=== PATIENT | female | born 1970 | race Caucasian/White ===

== ENCOUNTER → 2019-06-20 14:54 | Outpatient (CLI) | payer OTHER, SELFPAY ==
--- NOTE | ~2019-06-20 | MR_ITS ---
EXAMINATION: MR ankle RT wo con, MR foot RT wo con DATE: 06/20/2019 16:57 INDICATION: One year of right forefoot and ankle pain TECHNIQUE: 1. Magnetic resonance imaging (MRI) of the right ankle and hindfoot was performed without intravenous contrast. Sequences included sagittal, coronal, and axial proton-density weighted fast spin echo wit hout and with fat saturation. 2. MRI of the right fore and midfoot was performed without intravenous contrast. Sequences included s agittal and coronal T1-weighted FSE, sagittal fluid sensitive FSE STIR, axial and coronal PD-weighted FS FSE and axial PD-weighted FSE. COMPARISON: Right foot radiographs dated 04/21/2017 FINDINGS: Medial ankle ligaments: Deep and superficial deltoid ligaments as well as the spring ligament are normal. Lateral ankle ligaments: The anterior and posterior inferior tibiofibular ligaments are normal. The anterior talofibular, calc aneofibular and posterior talofibular ligaments are normal. Fore and midfoot ligaments: Lisfranc ligament is normal. There is a pseudoneuroma sign with asymmetric inflammatory stranding wit h medial sided predominance at the second-third intermetatarsal space. There is asymmetric thickening of the lateral side of the intermetatarsal intraosseous tendon-collateral ligament complex at the le susan of the head of the second metatarsal. Finally there is thinning of the distal plantar plate. Each of these findings is consistent with a plantar plate tear although no discrete fluid signal intensit y tear defect is appreciated. The remaining collateral ligament complexes at the metatarsophalangeal and interphalangeal joints are normal. Tendons: Achilles tendon is normal. The peroneus longus and brevis tendons are normal. The tibialis anterior a nd extensor hallucis longus and extensor digitorum longus tendons are normal. The tibialis posterior, flexor digitorum longus and flexor hallucis longus tendons are normal. Plantar fascia: There is mild thickening and mild increased signal of the proximal plantar aponeurosis with small katy ntar calcaneal spur at its calcaneal insertion consistent with mild chronic plantar enthesopathy. The re is minimal edema surrounding the proximal plantar aponeurosis consistent with negligible acute fas ciitis. Bones/other: Bone alignment is normal. Normal marrow signal throughout. No fracture or pathologic marrow replacing process. Mild osteoarthritis at the first metatarsophalangeal joint. Remaining joint spaces appear r elatively preserved. Fluid: Physiologic amount fluid in the joint spaces. No tenosynovitis, bursitis or other abnormal fluid silvia ections. IMPRESSION: 1. Moderate chronic plantar enthesopathy with negligible acute plantar fasciitis. 2. Constellation of secondary findings consistent with tear of the plantar plate complex head of the second metatarsal. 3. Mild osteoarthritis at the first metatarsophalangeal joint. Reviewed, dictated and finalized at location A. IMPRESSION: 1. Moderate chronic plantar enthesopathy with negligible acute plantar fasciiti s. 2. Constellation of secondary findings consistent with tear of the plantar plat e complex head of the second metatarsal. 3. Mild osteoarthritis at the first metatarsophalangeal joint.
== END ==
PROVIDERS: PCP Family Medicine; Visit Provider Podiatrist Foot & Ankle Surgery
DX: M79.671 Pain in right foot (principal); M25.571 Pain in right ankle and joints of right foot; M72.2 Plantar fascial fibromatosis; M19.071 Primary osteoarthritis, right ankle and foot
CPT/HCPCS: 73718; 73721

== ENCOUNTER 2020-01-24 16:38 | Outpatient (CLI) | payer OTHER, SELFPAY ==
--- NOTE | ~2020-01-24 | XR_ITS ---
EXAMINATION: XR hip RT min 2V EXAM DATE: 01/24/2020 17:05 INDICATION: Right hip pain. TECHNIQUE: Right hip frontal, crosstable lateral and 'frog-leg' projections for interpretation. Chandrakant evanon is made to prior examination from 11/18/2010. FINDINGS: Smooth right hip femoral head contour, no radiographic evidence of avascular necrosis. Th e right hip joint space is normal and without bony productive change. There are no acute fractures or dislocations identified. There is no subcutaneous gas. The soft tissue is unremarkable. Lumbar f usion. IUD. IMPRESSION: 1. Unremarkable right hip exam. Reviewed, dictated and finalized at location A.
--- NOTE | ~2020-01-24 | XR_ITS ---
EXAMINATION: XR lumbar spine 2-3V EXAM DATE: 01/24/2020 17:05 INDICATION: Low back pain, right-sided hip pain. TECHNIQUE: Lumber spine frontal, lateral, lateral L5-S1 projections for interpretation. Correlation i s made to CT lumbar spine 06/17/2014. FINDINGS: Again there is posterior and interbody fusion L4-S1, hardware appears intact. L5 laminecto mies. Probably L4 laminotomies. There are cholecystectomy clips. There is mild disc disease L2-3 and L3-4. The vertebral bodies are aligned in the AP dimension. The vertebral body heights are maintained . No endplate erosive change. Sacrum, sacroiliac joints, sacral arcuate lines are intact. There is IU D projecting over the central aspect of the pelvis. There are cholecystectomy clips. IMPRESSION: 1. Intact L4-S1 fusion. 2. Mild lumbar spondylosis. Reviewed, dictated and finalized at location A.
== END 2020-01-24 16:39 | disposition home or self-care (01) ==
PROVIDERS: PCP Family Medicine; Visit Provider Nurse Practitioner Family
DX: M25.551 Pain in right hip (principal); G89.29 Other chronic pain; M54.5 Low back pain; Z98.1 Arthrodesis status; M47.816 Spondylosis without myelopathy or radiculopathy, lumbar region
CPT/HCPCS: 72100; 73502

== ENCOUNTER → 2020-02-13 07:41 | Outpatient (CLI) | payer OTHER, SELFPAY ==
--- NOTE | ~2020-02-13 | MR_ITS ---
EXAMINATION: MR cervical spine wo con EXAM DATE: 02/13/2020 08:54 INDICATION: M54.12 - Radiculopathy, cervical region radiculopathy. TECHNIQUE: Multi-sequential, multiplanar MR images of the cervical spine were obtained without contra st. Axial T2, axial T2 MERGE sequence. Sagittal T1, T2, T2 fat saturation images also obtained. Th ere is no prior study for comparison. FINDINGS: The vertebral bodies are aligned in the AP dimension. Vertebral body and disc heights are well-maintained. The spinal cord signal intensity and intrinsic morphology is normal. Cervicomedullar y junction is normal in appearance. There are no suspicious marrow signal abnormalities. Paraspinal s oft tissue is unremarkable. Level by level evaluation: C2-C3: Disc does not extend beyond the endplate margin. Uncovertebral joint arthropathy: None. Facet joint arthropathy: Mild. Neural foraminal stenosis: No stenosis. Central canal stenosis: No stenosis. C3-C4: There is a minimal diffuse disc bulge. Uncovertebral joint arthropathy: Mild left. Facet joint arthropathy: Mild to moderate. Neural foraminal stenosis: Mild left. Central canal stenosis: No stenosis. C4-C5: Disc does not extend beyond the endplate margin. Uncovertebral joint arthropathy: Mild bilateral. Facet joint arthropathy: Mild to moderate bilateral. Neural foraminal stenosis: No stenosis. Central canal stenosis: No stenosis. C5-C6: Disc does not extend beyond the endplate margin. Uncovertebral joint arthropathy: Mild bilateral. Facet joint arthropathy: Mild to moderate bilateral. Neural foraminal stenosis: No stenosis. Central canal stenosis: No stenosis. C6-C7: Disc does not extend beyond the endplate margin. Uncovertebral joint arthropathy: Mild to moderate left, mild right. Facet joint arthropathy: Mild bilateral. Neural foraminal stenosis: Mild left. Central canal stenosis: No stenosis. C7-T1: Disc does not extend beyond the endplate margin. Uncovertebral joint arthropathy: None. Facet joint arthropathy: Mild to moderate right, mild left. Neural foraminal stenosis: Mild right. Central canal stenosis: No stenosis. IMPRESSION: 1. Mild cervical spondylosis. Reviewed, dictated and finalized at location A. O PLANT OPERATOR
--- NOTE | ~2020-02-13 | MR_ITS ---
EXAMINATION: MR thoracic spine wo con EXAM DATE: 02/13/2020 08:55 INDICATION: M47.814 - Spondylosis without myelopathy or radiculopathy, thoracic region radiculopathy. TECHNIQUE: Multi-sequential, multiplanar MR images of the thoracic spine were obtained without contra st. Sagittal T1, T2, T2 fat saturation, axial T2 weighted images reviewed. Correlation is made to CT thoracic spine 06/27/2014. FINDINGS: The spinal cord signal intensity and intrinsic morphology is normal. Central canal and neur al foramen are widely patent. There is mild thoracic disc disease and mild diffuse facet arthropathy. There are no suspicious marrow signal abnormalities. Paraspinal soft tissue is unremarkable. Incide ntal left thyroid lobe nodule in the inferior pole measuring about 2 cm. IMPRESSION: 1. Mild thoracic spondylosis. No stenosis. 2. Left thyroid lobe nodule; consider ultrasound for risk stratification. Reviewed, dictated and finalized at location A. D CARE SPECIALIST
--- NOTE | ~2020-02-13 | MR_ITS ---
EXAMINATION: MR lumbar spine wo con EXAM DATE: 02/13/2020 09:06 INDICATION: Low back pain M54.5 - Low back pain . TECHNIQUE: Multi-sequential, multiplanar MR images of the lumbar spine were obtained without contrast . Sagittal T1, T2, T2 fat saturation images. Axial T2 weighted images. Comparison is made to prior examination from 10/21/2018. FINDINGS: L5 laminectomies. Posterior and interbody fusion L4-S1. The vertebral bodies are aligned in the AP dimension. Mild disc disease L2-3 and L3-4. The conus medullaris terminates at the L2 level a nd has normal signal intensity and morphology. Paraspinal soft tissue is unremarkable. Level by level evaluation: T12-L1: Disc does not extend beyond the endplate margin. Facet arthropathy: None. Neural foraminal stenosis: No stenosis. Central canal stenosis: No stenosis. L1-L2: Disc does not extend beyond the endplate margin. Facet arthropathy: Mild bilateral. Neural foraminal stenosis: No stenosis. Central canal stenosis: No stenosis. L2-L3: There is a mild diffuse disc bulge. Facet arthropathy: Mild. Neural foraminal stenosis: No stenosis. Central canal stenosis: No stenosis. L3-L4: There is a mild diffuse disc bulge. Facet arthropathy: Mild to moderate. Neural foraminal stenosis: Mild bilateral. Central canal stenosis: No stenosis. L4-L5: This level is fused. Facet arthropathy: Poorly visualized. Neural foraminal stenosis: No stenosis. Central canal stenosis: No stenosis. L5-S1: This level is fused. Facet arthropathy: Poorly visualized. Neural foraminal stenosis: No stenosis. Central canal stenosis: No stenosis. IMPRESSION: 1. L4-S1 fusion, posterior decompression. 2. Mild lumbar spondylosis. Reviewed, dictated and finalized at location A. HAND
== END ==
PROVIDERS: PCP Family Medicine; Referring Provider Nurse Practitioner Family; Visit Provider Physician Assistant Medical
DX: M47.14 Other spondylosis with myelopathy, thoracic region (principal); E04.1 Nontoxic single thyroid nodule; M47.26 Other spondylosis with radiculopathy, lumbar region; Z98.1 Arthrodesis status; M48.03 Spinal stenosis, cervicothoracic region; M48.061 Spinal stenosis, lumbar region without neurogenic claudication
CPT/HCPCS: 72141; 72146; 72148

== ENCOUNTER → 2020-02-27 15:41 | Outpatient (CLI) | payer OTHER, SELFPAY ==
--- NOTE | ~2020-02-27 | US_ITS ---
EXAMINATION: US thyroid DATE: 02/27/2020 15:57 INDICATION: Nontoxic single thyroid nodule. TECHNIQUE: Multiple ultrasound images of the thyroid were obtained. COMPARISON: None. FINDINGS: The right thyroid lobe measures 6.3 x 1.9 x 1.6 cm. The left thyroid lobe measures 5.3 x 1.7 x 1.7 c m. In the right thyroid lobe, there is a 10 mm mixed cystic and solid, isoechoic, gmovf-arlo-vpyt no dule with ill-defined margin without echogenic foci (TI-RADS TR2). In the right thyroid lobe, there i s a 7 mm solid, hypoechoic, ndase-hexi-neun nodule with lobulated margin without echogenic foci (TR4) . In the left thyroid lobe, there is a 1.3 cm solid, hypoechoic, rjyzk-gzlk-xsvc nodule with lobulate d margin without echogenic foci (TR4). IMPRESSION: 1. Thyroid nodules. Thyroid ultrasound is recommended in one year. Reviewed, dictated and finalized at location A. PING MACHINE OPERATOR FOR METAL
== END ==
PROVIDERS: PCP Family Medicine; Visit Provider Physician Assistant Medical
DX: E04.2 Nontoxic multinodular goiter (principal)
CPT/HCPCS: 76536

== ENCOUNTER 2020-03-28 10:36 | Emergency (ER) | payer OTHER, SELFPAY ==
[2020-03-28 10:44] VITALS: BP 128/80; PULSE 69; RESP 16; TEMP 36.7; O2SAT 99
--- NOTE | 2020-03-28 10:55 | ED.FEMALEGU ---
HPI - Female Genitourinary General Chief complaint: Urogenital-Female Stated complaint: possible uti Time Seen by Provider: 03/28/20 10:55 Source: patient and RN notes reviewed Mode of arrival: ambulatory Limitations: no limitations History of Present Illness HPI Narrative: 49-year-old female presents concern for urinary tract infection. Reports symptoms of hematuria, frequency, urgency, bladder pain started last night. Reports she finished a course of Macrobid for urinary tract infection that started on 03/18, reports symptoms improved within 1 to 2 days of that antibiotic. Denies a history of frequent UTIs. Denies fever, abdominal pain, nausea, vomiting, back pain. MD elicited complaint: UTI Related Data Home Medications Medication Instructions Recorded Confirmed duloxetine [Cymbalta] 30 mg PO HS 03/28/20 03/28/20 estradiol 0.5 mg PO DAILY 03/28/20 03/28/20 levonorgestrel [Mirena] 1 device INTRAUTERINE ONCE 03/28/20 03/28/20 naproxen [Naprosyn] 500 mg PO BID 03/28/20 03/28/20 Allergies Allergy/AdvReac Type Severity Reaction Status Date / Time oxycodone Allergy Unknown Itching Verified 03/28/20 10:51 Review of Systems Review of Systems: Narrative: CONSTITUTIONAL: Denies malaise, chills, sweats, or fever. CARDIOVASCULAR: Denies chest pain, palpitations, or edema. RESPIRATORY: Denies cough or dyspnea. GASTROINTESTINAL: Denies abdominal pain, nausea, vomiting, diarrhea GENITOURINARY: Denies dysuria. Reports frequency, urgency, hematuria. SKIN: Denies rash or itching. MUSCULOSKELETAL: Denies back pain or myalgia. All systems reviewed & are unremarkable except as noted in HPI and below PMFSH Past Medical History Medical History Anxiety BMI 27.0-27.9,adult BMI 28.0-28.9,adult GERD (gastroesophageal reflux disease) Hyperlipidemia Migraine RLS (restless legs syndrome) Surgical History Surgical History H/O Spinal surgery hardware History of cholecystectomy Family History Family History Grandparent Cerebrovascular accident Family history of heart disease in male family member before age 55 Other Diabetes mellitus Social History Social History Smoking status: Never smoker Alcohol intake: current Comments At time of signature, agree with nursing past medical, surgical, social and family history. There is no relevant family history pertinent to the presenting complaint Exam Narrative: Exam Narrative: GENERAL: Well-appearing, well-nourished, and in no acute distress. HEAD: Normocephalic. EYES: PERRLA, conjunctivae clear. NECK: Supple. No lymphadenopathy CHEST: Clear to auscultation. No respiratory distress. HEART: Regular rate and rhythm. ABDOMEN: Soft, nontender upon palpation, nondistended, normal active bowel sounds, no palpable or pulsatile masses, no guarding. No CVA tenderness SKIN: Warm, dry, no rash. NEURO: Alert and oriented x3. PSYCH: Normal mood and affect Course Course Emergency Course: Patient is aware of diagnosis, understands and agrees to treatment plan. Anticipatory guidance given. Patient agrees to follow-up as directed and is aware of reasons to seek care at the emergency department. Portions of this record may have been created with voice recognition software Vital Signs Vital signs: Vital Signs Temperature 98.1 F 03/28/20 10:44 Pulse Rate 69 03/28/20 10:44 Respiratory Rate 16 03/28/20 10:44 Blood Pressure 128/80 03/28/20 10:44 Pulse Oximetry 99 03/28/20 10:44 Temperature 98.1 F 03/28/20 10:44 Pulse Rate 69 03/28/20 10:44 Respiratory Rate 16 03/28/20 10:44 Blood Pressure 128/80 03/28/20 10:44 Pulse Oximetry 99 03/28/20 10:44 Reviewed. MDM - Female Genitourinary MDM Narrative Medical decision raymond
== END 2020-03-28 11:30 | disposition home or self-care (01) ==
PROVIDERS: Emergency Provider Nurse Practitioner; PCP Family Medicine
DX: R35.0 Frequency of micturition (principal); R31.9 Hematuria, unspecified; R39.15 Urgency of urination; E78.5 Hyperlipidemia, unspecified; G25.81 Restless legs syndrome; K21.9 Gastro-esophageal reflux disease without esophagitis; F41.9 Anxiety disorder, unspecified
CPT/HCPCS: 81003; 87077; 87086; 87088; 87186; 99213; G0463

== ENCOUNTER 2020-04-21 08:05 | Emergency (ER) | payer OTHER, SELFPAY ==
--- NOTE | 2020-04-21 08:15 | ED.FEMALEGU ---
HPI - Female Genitourinary General Chief complaint: Urogenital-Female Stated complaint: possible uti Time Seen by Provider: 04/21/20 08:15 Source: patient and RN notes reviewed Mode of arrival: ambulatory Limitations: no limitations History of Present Illness HPI Narrative: 49-year-old female presents to [facility] with complaints of I have a UTI . Seen 03/18 and 03/28 for the same. On 03/28 put on Augmentin and culture sent. Patient states that she was started on estrogen early March and within 2 weeks her symptoms started. States she also had a bladder tie up by a urologist in the last couple of years. Denies pain but states frequency and urgency very similar to [place] Eve. Denies fevers, nausea, vomiting, diarrhea, back pain, abdominal pain. no chest pain or shortness of breath Denies any vaginal complaints MD elicited complaint: dysuria and UTI Related Data Home Medications Medication Instructions Recorded Confirmed duloxetine [Cymbalta] 30 mg PO HS 03/28/20 04/21/20 estradiol 0.5 mg PO DAILY 03/28/20 04/21/20 cyclobenzaprine 5 mg PO DAILY 04/21/20 04/21/20 naproxen 500 mg PO DAILY 04/21/20 04/21/20 sumatriptan succinate 100 mg PO DAILY 04/21/20 04/21/20 Allergies Allergy/AdvReac Type Severity Reaction Status Date / Time oxycodone Allergy Intermediate Itching Verified 04/21/20 08:15 Review of Systems Review of Systems: Narrative: CONSTITUTIONAL: Denies fever, chills, or sweats. EYES: Denies visual changes, redness, or discharge. ENT: Denies rhinorrhea, congestion, sore throat, or otalgia. CARDIOVASCULAR: Denies chest pain, palpitations, or edema. RESPIRATORY: Denies cough or dyspnea. GASTROINTESTINAL: Denies abdominal pain, nausea, vomiting, or diarrhea. GENITOURINARY: Positive dysuria, frequency and urgency. Bladder cramping SKIN: Denies rash or itching. MUSCULOSKELETAL: Denies back pain, joint pain, or myalgia. NEUROLOGIC: Denies headache. PSYCHIATRIC: Denies anxiety or depression. All other systems reviewed are negative, except as documented in HPI. [facility] Past Medical History Medical History (Updated 04/21/20 @ 09:17 by Nora Wheeler) Anxiety BMI 27.0-27.9,adult BMI 28.0-28.9,adult GERD (gastroesophageal reflux disease) Hyperlipidemia Migraine RLS (restless legs syndrome) Surgical History Surgical History (Updated 04/21/20 @ 09:17 by Nora Wheeler) H/O Spinal surgery hardware History of bladder surgery History of cholecystectomy Family History Family History Grandparent Cerebrovascular accident Family history of heart disease in male family member before age 55 Other Diabetes mellitus Social History Social History Smoking status: Never smoker Alcohol intake: current Gender identity (if verbalized by the patient): Female Comments At the time of my signature, I reviewed and agree with the nursing past medical, surgical, social, and family history. There is no relevant family history pertinent to the patient complaint. Exam Narrative: Exam Narrative: GENERAL: This is a well-nourished, well-developed patient, in no apparent distress. HEAD: normocephalic, atraumatic. EYES: PERRL. Sclera clear/white. Vision is grossly intact. NECK: Neck supple, non-tender without lymphadenopathy, masses or thyromegaly. CARDIOVASCULAR: Regular rate and rhythm without murmurs, gallops, or rubs. RESPIRATORY: Clear to auscultation. Breath sounds equal bilaterally. No wheezes, rales, or rhonchi. GASTROINTESTINAL: Abdomen soft, non-tender, nondistended. SKIN: warm, intact with no suspicious lesions or rash, good texture and turgor. NEURO: awake, alert, and oriented to person, place and time. There were no obvious focal neurologic abnormalities. EXTREMITIES: No clubbing, cyanosis, or edema. No joint tenderness, effusion, or edema noted. No calf tenderness. Negative Homans sign bila
[2020-04-21 08:22] VITALS: BP 129/86; PULSE 74; RESP 16; TEMP 36.9; O2SAT 99
== END 2020-04-21 08:40 | disposition home or self-care (01) ==
PROVIDERS: Emergency Provider Nurse Practitioner; PCP Family Medicine
DX: N30.01 Acute cystitis with hematuria (principal); K21.9 Gastro-esophageal reflux disease without esophagitis; E78.5 Hyperlipidemia, unspecified; G25.81 Restless legs syndrome; F41.9 Anxiety disorder, unspecified
CPT/HCPCS: 81003; 87077; 87086; 87088; 87186; 99213; G0463

== ENCOUNTER → 2020-05-13 13:28 | Outpatient (CLI) | payer OTHER, SELFPAY ==
--- NOTE | ~2020-05-13 | US_ITS ---
US retroperitoneal comp 05/13/2020 13:44 Procedure: Realtime transabdominal ultrasound of the kidneys and bladder. Indication: Chronic UTI Comparison: 10/04/2016 Findings: Renal echotexture is normal bilaterally without hydronephrosis, contour deforming mass or r enal calculus. The right kidney measures 10.2 cm and left kidney measures 10.1 cm. Bladder within no rmal limits. Impression: 1: Unremarkable renal ultrasound. No stones, masses or hydronephrosis. Reviewed, dictated and finalized at location B. ING BELT OPERATOR Impression: 1: Unremarkable renal ultrasound. No stones, masses or hydronephrosis.
== END ==
PROVIDERS: PCP Family Medicine; Visit Provider Nurse Practitioner Adult Health
DX: N39.0 Urinary tract infection, site not specified (principal)
CPT/HCPCS: 76770

== ENCOUNTER → 2020-05-28 15:58 | Outpatient (CLI) | payer OTHER, SELFPAY ==
--- NOTE | ~2020-05-28 | MM_ITS ---
EXAMINATION: MM screening adalberto BI w delta HISTORY: Screening mammogram TECHNIQUE: Craniocaudal and mediolateral oblique 3-D tomosynthesis images were obtained and synthetic 2-D images were generated. CAD analysis was submitted and interpreted. COMPARISON: 04/25/2019, 03/02/2018 BREAST PARENCHYMAL COMPOSITION: The breasts are heterogeneously dense, which may obscure small masses . FINDINGS: There are waxing and waning similar appearing bilateral breast masses, consistent with cyst s. There is no evidence of suspicious mass, calcification, or architectural distortion to suggest mal ignancy in either breast. There has been no suspicious interval change. IMPRESSION: 1. No mammographic evidence of malignancy. 2. Recommend routine screening mammography in one year. BI-RADS Category 2: Benign finding(s). Reviewed, dictated and finalized at location A. DER SET UP OPERATOR CENTERLESS
== END ==
PROVIDERS: PCP Family Medicine; Visit Provider Obstetrics & Gynecology Gynecology
DX: Z12.31 Encounter for screening mammogram for malignant neoplasm of breast (principal)
CPT/HCPCS: 77063; 77067

== ENCOUNTER → 2020-08-27 16:10 | Outpatient (CLI) | payer OTHER, SELFPAY ==
--- NOTE | ~2020-08-27 | XR_ITS ---
XR knee LT 2V 08/27/2020 16:32 INDICATION: Left knee pain PROCEDURE: 2 views left knee COMPARISON: No prior studies for comparison. FINDINGS: Fracture, dislocation or subluxation is not identified. The soft tissues appear within norm al limits. No foreign bodies are identified. IMPRESSION: 1: NO ACUTE BONE OR JOINT ABNORMALITY IDENTIFIED. Reviewed, dictated and finalized at location A.
== END ==
PROVIDERS: Visit Provider Nurse Practitioner Family
DX: M25.562 Pain in left knee (principal)
CPT/HCPCS: 73560

== ENCOUNTER → 2020-09-30 14:51 | Outpatient (CLI) | payer OTHER, SELFPAY ==
--- NOTE | ~2020-09-30 | MR_ITS ---
EXAMINATION: MR knee LT wo con DATE: 09/30/2020 15:25 INDICATION: Medial left knee pain and limited range of motion. TECHNIQUE: Magnetic resonance imaging (MRI) of the left knee was performed without intravenous contra st. Sequences included coronal PD-weighted FSE, coronal PD-weighted FS FSE, sagittal T2-weighted FSE , sagittal PD-weighted FS FSE and axial PD weighted fat saturated FSE. COMPARISON: None. FINDINGS: Medial compartment: Medial meniscus is normal. Articular cartilage is normal. Lateral compartment: Lateral meniscus is normal. Articular cartilage is normal. Patellofemoral compartment: Articular cartilage is normal. Ligaments and tendons: Anterior and posterior cruciate ligaments are normal. Mild thickening and mild increased signal at th e anterior aspect of the proximal medial collateral ligament without significant surrounding edema co nsistent with mild scarring related to chronic sprain. The fibular collateral ligament is normal. The extensor mechanism is normal. The visualized medial and lateral hamstring tendons as well as the ilya otibial band are normal. Mild tendinopathy without discrete tear at the proximal tendon of the medial head of the gastrocnemius muscle. Fluid: Physiologic amount of fluid in the joint space. No loose osteochondral bodies identified. Small Schneider 's cyst. Osseous/other: Normal marrow signal. No fracture or abnormal marrow replacing process. IMPRESSION: 1. Mild tendinopathy without discrete tear at the proximal end of the medial head of the gastrocnemiu s muscle. 2. Mild scarring related to chronic sprain at the proximal medial collateral ligament. 3. Small Schneider's cyst. Reviewed, dictated and finalized at location A. IMPRESSION: 1. Mild tendinopathy without discrete tear at the proximal end of the medial he ad of the gastrocnemius muscle. 2. Mild scarring related to chronic sprain at the proximal medial collateral li gament. 3. Small Schneider's cyst.
== END ==
PROVIDERS: Visit Provider Nurse Practitioner Family
DX: S89.92XA Unspecified injury of left lower leg, initial encounter (principal); M25.562 Pain in left knee; M67.864 Other specified disorders of tendon, left knee; S83.412A Sprain of medial collateral ligament of left knee, initial encounter; M71.22 Synovial cyst of popliteal space [Baker], left knee
CPT/HCPCS: 73721

== ENCOUNTER → 2021-03-20 14:49 | Outpatient (CLI) | payer OTHER, SELFPAY ==
--- NOTE | ~2021-03-20 | US_ITS ---
EXAMINATION: US thyroid EXAM DATE: 03/20/2021 15:06 INDICATION: E04.1 - Nontoxic single thyroid nodule. TECHNIQUE: Multiple grayscale and Doppler images of the thyroid were obtained (by a technologist who performed the scan) and subsequently reviewed. Individual nodules and recommendations may be reporte d in accordance with TI-RADS system as designated by the 2017 ACR White Paper TI-RADS committee. Comp linda is made to prior examination from 02/27/2020. FINDINGS: The right thyroid lobe measures 6.7 x 2.0 x 1.7, the left measuring 5.4 x 1.7 x 1.7 cm. Mildly hetero geneous thyroid echogenicity. Scattered thyroid nodules. There is a left thyroid lobe nodule measuring 1.1 x 0.8 x 1.4 cm, solid (2 points), hypoechoic (2 poi nts), wider than tall, smooth well defined margin, without echogenic foci, category TR4 for this nodu le. This nodule measured 0.9 x 0.8 x 1.3 cm on prior study, does not meet criteria for definite grow th. One-year follow-up recommended. Largest right thyroid lobe nodule measures 1.3 x 0.8 x 1.2 cm, mixed cystic and solid (1 point), hypo echoic (2 points), wider than tall, smooth well defined margin, without echogenic foci, category TR3 for this nodule. Dimensions on previous exam at 1.0 x 0.8 x 0.9 cm, cystic component has increased i n size. Other nodules are smaller. IMPRESSION: Multinodular goiter; recommend one-year follow-up ultrasound. Reviewed, dictated and finalized at location B. NE GEAR KEEPER
== END ==
PROVIDERS: PCP Family Medicine; Visit Provider Nurse Practitioner Family
DX: E04.2 Nontoxic multinodular goiter (principal)
CPT/HCPCS: 76536

== ENCOUNTER → 2021-06-03 15:55 | Outpatient (CLI) | payer OTHER, SELFPAY ==
--- NOTE | ~2021-06-03 | DEXA_ITS ---
Bone Density Report Name: JUNIOR ALVARADO Age: 50 Sex: Female Ethnicity: White Date of : 1970 Indication: postmenopausal; screening for osteoporosis; height loss; Referring Provider: DEB DONOVAN Study: Bone densitometry was performed. Exam Date: June 03, 2021 Accession number: [id number] Bone Density: Region BMD T-score Z-score Classification AP Spine (L1, L2, L3) 1.117 0.9 1.8 Normal Femoral Neck (Left) 0.850 0.0 0.9 Normal Total Hip (Left) 1.013 0.6 1.2 Normal Femoral Neck (Right) 0.881 0.3 1.2 Normal Total Hip (Right) 0.989 0.4 1.0 Normal Total Hip Mean 1.001 0.5 1.1 Normal World Health Organization criteria for BMD impression classify patients as: Normal (T-score at or above -1.0), Osteopenia (T-score between -1.0 and -2.5), or Osteoporosis (T-score at or below -2.5). 10-year Fracture Risk: FRAX not reported because: All T-scores for Spine Total, Hip Total, Femoral Neck at or above -1.0 Treated for osteoporosis Clinical Information Provided by Patient: Is being treated for osteoporosis Has used the following medications: HRT (i.e. estrogen/hormone therapy), Vitamin D, IUD Patient maximum height was 64 Menopause Age: 50 No regular weight bearing exercise Drinks caffeinated beverages Onset of menses at age 14 Number of children 1 Missed period for more than 6 months in a row Impression: The patient has normal bone mass. Discussion: It is important to ask patients whether they are taking their medications and to encourage continued and appropriate compliance with their osteoporosis therapies to reduce fracture risk. It is also important to review their risk factors and encourage appropriate calcium and vitamin D intakes, exercise, fall prevention and other lifestyle measures. Follow-Up: Consider a repeat BMD and Vertebral Fracture Assessment (VFA) exam in 2 years or sooner if medically necessary, to reassess this patient's status. Reported by: [facility] on 06/03/2021 4:33:00 PM. Reviewed, dictated and finalized at location A. [facility] SERVICES[facility]
--- NOTE | ~2021-06-03 | MM_ITS ---
EXAMINATION: MM screening [facility] BI w delta HISTORY: Screening mammogram TECHNIQUE: Craniocaudal and mediolateral oblique 3-D tomosynthesis images were obtained and synthetic 2-D images were generated. CAD analysis was submitted and interpreted. COMPARISON: 05/28/2020, 04/25/2019, 03/02/2018 BREAST PARENCHYMAL COMPOSITION: There are scattered areas of fibroglandular density. FINDINGS: Again noted are waxing and waning, similar appearing bilateral breast masses, consistent wi th benign findings. There is no evidence of suspicious mass, calcification, or architectural distorti on to suggest malignancy in either breast. There has been no suspicious interval change. IMPRESSION: 1. No mammographic evidence of malignancy. 2. Recommend routine screening mammography in one year. BI-RADS Category 2: Benign finding(s). Reviewed, dictated and finalized at location A. ICIAN HELPER
== END ==
PROVIDERS: PCP Obstetrics & Gynecology Gynecology; Visit Provider Obstetrics & Gynecology Gynecology
DX: Z12.31 Encounter for screening mammogram for malignant neoplasm of breast (principal); Z78.0 Asymptomatic menopausal state
CPT/HCPCS: 77063; 77067; 77080

== ENCOUNTER → 2021-07-05 09:24 | Outpatient (CLI) | payer OTHER, SELFPAY ==
--- NOTE | ~2021-07-05 | MR_ITS ---
EXAMINATION: MR lumbar spine wo con DATE: 07/05/2021 09:59 INDICATION: Low back pain. TECHNIQUE: Magnetic resonance imaging (MRI) of the lumbar spine was performed without intravenous con trast. Sequences included sagittal T2-weighted FSE, sagittal T2-weighted FS FSE, sagittal T1-weighted FSE, and axial T2-weighted FSE. COMPARISON: Lumbar spine MRI 02/13/2020 FINDINGS: Bone alignment is normal. Vertebral body heights are normal. There are changes of anterior and posterior fusion procedures from L4 to S1 with discectomies, interbody devices, and pedicle screw s. There is mildly decreased disc height at L2-L3. The distal spinal cord signal intensity is normal. The conus medullaris is at L2. The following disc levels are specifically discussed: L1-L2: There is a central protrusion. There is mild bilateral facet joint osteoarthritis. There is no neural foraminal stenosis. There is mild central canal stenosis. L2-L3: The disc is bulging and has an annular fissure. There is mild bilateral facet joint osteoarthr itis. There is mild bilateral neural foraminal stenosis. There is mild central canal stenosis. L3-L4: The disc is bulging and has an annular fissure. There is mild right and moderate left facet quoc int osteoarthritis. There is mild bilateral neural foraminal stenosis. There is mild central canal st enosis. L4-L5: There is no facet joint hypertrophy. There is no neural foraminal stenosis. There is no centra l canal stenosis. L5-S1: There is no facet joint hypertrophy. There is no neural foraminal stenosis. There is mild cent ral canal stenosis with posterior decompression. IMPRESSION: 1. Stable mild lumbar spondylosis. 2. Anterior and posterior fusion procedures from L4 to S1. Reviewed, dictated and finalized at location E.
== END ==
PROVIDERS: Visit Provider Nurse Practitioner Family
DX: M54.50 Low back pain, unspecified (principal); M47.816 Spondylosis without myelopathy or radiculopathy, lumbar region; Z98.1 Arthrodesis status
CPT/HCPCS: 72148

== ENCOUNTER 2022-02-23 10:18 | Outpatient (CLI) | payer OTHER, SELFPAY ==
--- NOTE | ~2022-02-23 | US_ITS ---
EXAMINATION: US abdomen complete DATE: 02/23/2022 10:45 INDICATION: Unspecified abdominal pain. TECHNIQUE: Multiple grayscale and Doppler ultrasound images of the abdomen were obtained. COMPARISON: Ultrasound kidneys 05/13/2020 FINDINGS: The visualized portion of the head of the pancreas is normal. The liver is normal without f ocal lesion. There is normal flow in main portal vein. The gallbladder is absent. The common duct is normal and measures 6 mm. Abdominal aorta is normal in caliber. Inferior vena cava is normal. The kid neys are normal in size. The spleen is normal in size. IMPRESSION: 1. Normal complete abdomen ultrasound status post cholecystectomy. Reviewed, dictated and finalized at location A. STAPLER
[2022-02-23 11:43] LABS: Basophils Percent Auto 0.6 % (0.2-1.2); Eosinophils Percent Auto 0.8 % (0-4.4); Hematocrit 45.6 % (37.0-47.0); Hemoglobin 15.1 g/dL (12.0-15.0); Immature Granulocyte Absolute 0.04 K/mm3 (0.00-0.031); Immature Granulocyte Percent A 0.8 % (0-0.5); Lymphocytes Absolute Auto 1.48 K/mm3 (0.9-3.2); Mean Corpuscular HGB Conc 33.1 g/dl (32-36); Mean Corpuscular Hemoglobin 30.6 pg (26-34); Mean Corpuscular Volume 92.3 fl (80-100); Mean Platelet Volume 10.7 fl (7.4-10.4); Monocytes Absolute Auto 0.5 K/mm3 (0.1-0.6); Monocytes Percent Auto 9.8 % (2.6-8.5); Neutrophils Absolute Auto 3.2 K/mm3 (1.3-6.7); Platelet Count Result 225 k/mm3 (150-375); Red Blood Count 4.94 M/mm3 (4.2-5.4); Red Cell Distribution Width 13.1 % (11.5-14.5); White Blood Count 5.3 K/mm3 (4.5-10.0)
[2022-02-23 11:47] LABS: Alanine Aminotransferase 34 U/L (6-35); Albumin Level 4.3 g/dL (3.5-5.1); Alkaline Phosphatase 76 U/L (38-126); Amylase 61 U/L (30-110); Anion Gap 8 mmol/L (8-16); Aspartate Amino Transferase 28 U/L (14-36); Bilirubin,Total 0.7 mg/dL (0.2-1.3); Blood Urea Nitrogen 20 mg/dL (7-17); Carbon Dioxide 28 mmol/L (22-30); Chloride 103 mmol/L (98-107); Estimated Glomerular Filt Rate > 60; Glucose 81 mg/dL (65-110); Lipase 70 U/L (23-300); Sodium 139 mmol/L (137-145)
[2022-02-23 12:11] LABS: Free T4 Free Thyroxine 0.99 ng/mL (0.78-2.19)
== END 2022-02-23 10:19 | disposition home or self-care (01) ==
LOC: ANHIMG 10:20
PROVIDERS: PCP Family Medicine; Visit Provider Nurse Practitioner Family
DX: R10.9 Unspecified abdominal pain (principal); E04.1 Nontoxic single thyroid nodule
CPT/HCPCS: 36415; 76700; 80053; 82150; 83690; 84439; 84443; 85025

== ENCOUNTER → 2022-04-01 10:43 | Outpatient (CLI) | payer OTHER, SELFPAY ==
--- NOTE | ~2022-04-01 | US_ITS ---
Thyroid ultrasound. Clinical History: Nontoxic thyroid nodule Findings: Real-time sonography of the thyroid gland was performed. The right lobe measures 6.4 x 1.8 x 1.7 cm. The left lobe measures 5.3 x 1.5 x 1.6 cm. The isthmus is 4 mm in AP diameter. There is a 4 mm hypoechoic round nodule at the left superior pole. There is a 1.4 x 0.8 x 1.1 cm circ umscribed, mildly heterogeneous, hypoechoic, wider than tall nodule also the left upper pole. Several additional subcentimeter left thyroid lobe nodules are present. There is a 7 mm indistinct hypoechoic nodule at the anterior right mid to upper pole. There is a 1.2 cm predominantly cystic nodule at the right lower pole posteriorly. Impression: Multiple thyroid nodules, as detailed above. The largest left thyroid lobe nodule is consistent with a TR-4 lesion, and given size, annual follow-up is advised.. Reviewed, dictated and finalized at location . OENGRAVING PRINTER Impression: Multiple thyroid nodules, as detailed above. The largest left thyroid lobe nodu le is consistent with a TR-4 lesion, and given size, annual follow-up is advise dGeoff.
== END ==
PROVIDERS: PCP Family Medicine; Visit Provider Nurse Practitioner Family
DX: E04.2 Nontoxic multinodular goiter (principal)
CPT/HCPCS: 76536

== ENCOUNTER → 2022-08-18 14:49 | Outpatient (CLI) | payer OTHER, SELFPAY ==
--- NOTE | ~2022-08-18 | MM_ITS ---
EXAMINATION: MM screening [facility] BI w delta HISTORY: Screening mammogram TECHNIQUE: Craniocaudal and mediolateral oblique 3-D tomosynthesis images were obtained and synthetic 2-D images were generated. CAD analysis was submitted and interpreted. COMPARISON: 06/03/2021, 05/28/2020, 04/25/2019 BREAST PARENCHYMAL COMPOSITION:There are scattered areas of fibroglandular density. FINDINGS: Multiple circumscribed bilateral breast masses are again present, some waxing, some waning, overall relatively similar to prior exams. No overtly suspicious mass, calcification, or architectur al distortion are identified in either breast to suggest malignancy. There has been no suspicious int erval change. IMPRESSION: No mammographic evidence of malignancy. Recommend routine screening mammography in one year. BI-RADS Category 2: Benign finding(s). Reviewed, dictated and finalized at location .
== END ==
PROVIDERS: PCP Obstetrics & Gynecology Gynecology; Visit Provider Obstetrics & Gynecology Gynecology
DX: Z12.31 Encounter for screening mammogram for malignant neoplasm of breast (principal)
CPT/HCPCS: 77063; 77067

== ENCOUNTER 2023-04-09 15:43 | Outpatient (CLI) | payer OTHER, SELFPAY ==
--- NOTE | ~2023-04-09 | US_ITS ---
EXAMINATION: US thyroid DATE: 04/09/2023 16:13 INDICATION: Nontoxic single thyroid nodule. TECHNIQUE: Multiple ultrasound images of the thyroid were obtained. COMPARISON: Thyroid ultrasound 04/01/2022, 02/27/2020 FINDINGS: The right thyroid lobe measures 5.9 x 1.8 x 1.8 cm. The left thyroid lobe measures 5.1 x 1.9 x 1.6 c m. In the right thyroid lobe, there is a 1.1 cm solid, hypoechoic, wider than tall nodule with ill-d efined margin and macrocalcification (TI-RADS TR4). In the right thyroid lobe, there is a 6 mm solid, hypoechoic, wider than tall nodule with smooth margin without echogenic foci (TR4). In the left thyr oid lobe, there is a 4 mm nodule. In the left thyroid lobe, there is a 15 mm predominantly solid, hyp oechoic, wider than tall nodule with smooth margin without echogenic foci (TR4). In the left thyroid lobe, there is a 2.9 cm solid, hypoechoic, wider than tall nodule with lobulated margin without echog enic foci (TR4). IMPRESSION: 1. Multinodular goiter. Ultrasound-guided fine-needle aspiration of the 2 largest left thyroid nodule s is recommended. Reviewed, dictated and finalized at location E. ATRIC PSYCHIATRIST IMPRESSION: 1. Multinodular goiter. Ultrasound-guided fine-needle aspiration of the [address] left thyroid nodules is recommended.
== END 2023-04-09 15:44 ==
LOC: MICIMG 15:44
PROVIDERS: PCP Family Medicine; Visit Provider Nurse Practitioner Family
DX: E04.2 Nontoxic multinodular goiter (principal)
CPT/HCPCS: 76536

== ENCOUNTER 2023-05-19 12:27 | Outpatient (CLI) | payer OTHER, SELFPAY ==
--- NOTE | ~2023-05-19 | US_ITS ---
EXAMINATION: 1. US FNA w image guidance 2. US FNA additional DATE: 05/19/2023 13:54 INDICATION: Nontoxic single thyroid nodule. TECHNIQUE: The procedure and its benefits and risks were discussed with the patient. Risks specifically discusse d included bleeding. The patient verbalized understanding of the risks and agreed to proceed. The nec k was prepped and draped in the usual sterile manner. 1% lidocaine was used for local anesthesia. 8 passes were made with a 25G needle into the lesion in superior left thyroid lobe under ultrasound gu idance. 6 passes were made with a 25-gauge needle into the lesion in inferior left thyroid lobe under ultraso und guidance. There were no immediate complications. FINDINGS: Grayscale ultrasound images demonstrate needles advanced into a 15 mm nodule in superior left thyroid lobe for biopsy. Grayscale ultrasound images demonstrate needles advanced into a 2.9 cm nodule in in ferior left thyroid lobe for biopsy. IMPRESSION: 1. Ultrasound-guided fine needle aspiration of a 15 mm nodule in superior left thyroid lobe. 2. Ultrasound-guided fine-needle aspiration of a 2.9 cm nodule in inferior left thyroid lobe. Reviewed, dictated and finalized at location A. ITAL MONITOR IMPRESSION: 1. Ultrasound-guided fine needle aspiration of a 15 mm nodule in superior left thyroid lobe. 2. Ultrasound-guided fine-needle aspiration of a 2.9 cm nodule in inferior left thyroid lobe.
== END 2023-05-19 12:28 | disposition home or self-care (01) ==
LOC: ANHIMG 12:28
PROVIDERS: PCP Family Medicine; Visit Provider Nurse Practitioner Family
DX: E04.2 Nontoxic multinodular goiter (principal)
CPT/HCPCS: 10005; 10006; 88172; 88173; 88305

== ENCOUNTER 2023-08-13 15:53 | Outpatient (CLI) | payer OTHER, SELFPAY ==
--- NOTE | ~2023-08-13 | MR_ITS ---
EXAMINATION: MR cervical spine wo con DATE: 08/13/2023 16:45 INDICATION: Spondylosis without myelopathy radiculopathy. Back pain. TECHNIQUE: Magnetic resonance imaging (MRI) of the cervical spine was performed without intravenous c ontrast. COMPARISON: Cervical spine MRI 02/13/2020 FINDINGS: Bone alignment is normal. Vertebral body heights are normal. Intervertebral disc heights ar e normal in cervical spine. The spinal cord signal intensity is normal. The following disc levels are specifically discussed: C2-C3: The disc does not extend beyond the endplate margin. There is no uncovertebral joint osteoarth ritis. There is mild bilateral facet joint osteoarthritis. There is no neural foraminal stenosis. The re is no central canal stenosis. C3-C4: There is a central extrusion. There is mild right and moderate left uncovertebral joint osteoa rthritis. There is severe bilateral facet joint osteoarthritis. There is mild left neural foraminal s tenosis. There is mild central canal stenosis. C4-C5: There is a central protrusion. There is mild right and moderate left uncovertebral joint osteo arthritis. There is severe bilateral facet joint osteoarthritis. There is mild bilateral neural jalyn inal stenosis. There is mild central canal stenosis. C5-C6: The disc does not extend beyond the endplate margin. There is moderate right and mild left unc overtebral joint osteoarthritis. There is moderate bilateral facet joint osteoarthritis. There is mil d right neural foraminal stenosis. There is no central canal stenosis. C6-C7: There is a central protrusion. There is mild right and moderate left uncovertebral joint osteo arthritis. There is severe right and mild left facet joint osteoarthritis. There is mild left neural foraminal stenosis. There is no central canal stenosis. C7-T1: The disc does not extend beyond the endplate margin. There is no uncovertebral joint osteoarth ritis. There is severe bilateral facet joint osteoarthritis. There is mild bilateral neural foraminal stenosis. There is no central canal stenosis. IMPRESSION: 1. Mild cervical spondylosis, stable from 02/13/2020. Reviewed, dictated and finalized at location A.
--- NOTE | ~2023-08-13 | MR_ITS ---
EXAMINATION: MR thoracic spine wo con DATE: 08/13/2023 16:57 INDICATION: Spondylosis without myelopathy or radiculopathy. Back pain. TECHNIQUE: Magnetic resonance imaging (MRI) of the thoracic spine was performed without intravenous c ontrast. COMPARISON: Thoracic spine MRI 02/13/2020 FINDINGS: There is kyphosis of cervical spine. There is mild chronic anterior wedging of T7-T9 verteb ral bodies. There is mildly decreased disc height from T3-T4 through T9-T10 and at T11-T12. There is multilevel facet joint osteoarthritis, severe bilaterally in upper thoracic spine. On the right, ther e is mild neural foraminal stenosis at T1-T2, moderate neural foraminal stenosis at T2-T3, and mild n eural foraminal stenosis at T3-T4 and T4-T5. On the left, there is mild neural foraminal stenosis fro m T1-T2 through T6-T7. At T2-T3, there is a central extrusion with mild central canal stenosis. At T3 -T4, there is a central extrusion with mild central canal stenosis. At T4-T5, there is a central extr usion with mild central canal stenosis and ventral indentation of the spinal cord. The spinal cord si gnal intensity is normal. The conus medullaris is at L1-L2. IMPRESSION: 1. Mild thoracic spondylosis, stable from 02/13/2020. Reviewed, dictated and finalized at location E.
== END 2023-08-13 15:54 | disposition home or self-care (01) ==
LOC: ANHIMG 15:55
PROVIDERS: PCP Family Medicine; Visit Provider Nurse Practitioner Family
DX: M47.814 Spondylosis without myelopathy or radiculopathy, thoracic region (principal); M47.812 Spondylosis without myelopathy or radiculopathy, cervical region; R20.0 Anesthesia of skin; R20.2 Paresthesia of skin
CPT/HCPCS: 72141; 72146

== ENCOUNTER 2023-08-23 15:55 | Outpatient (CLI) | payer OTHER, SELFPAY ==
--- NOTE | ~2023-08-23 | MM_ITS ---
EXAMINATION: MM screening [facility] BI w delta HISTORY: Screening mammogram TECHNIQUE: Craniocaudal and mediolateral oblique 3-D tomosynthesis images were obtained and synthetic 2-D images were generated. CAD analysis was submitted and interpreted. COMPARISON: 08/18/2022, 06/03/2021, 05/28/2020 bilateral screening mammogram examinations 01/26/2017 diagnostic right mammogram and complete right breast ultrasound examination BREAST PARENCHYMAL COMPOSITION: There are scattered areas of fibroglandular density. FINDINGS: There is waxing and waning of multiple bilateral low-density circumscribed opacities over s erial examinations consistent with fibrocystic changes. The largest measures up to approximately 1.5 cm on the right, 8.5 mm on the left. There is no evidence of suspicious mass, calcification, or archi tectural distortion to suggest malignancy in either breast. There has been no suspicious interval emiliano nge. IMPRESSION: 1. Fibrocystic changes. No mammographic evidence of malignancy 2. Recommend routine screening mammography in one year. BI-RADS Category 2: Benign finding(s). Reviewed, dictated and finalized at location B.
== END 2023-08-23 15:56 ==
LOC: MICIMG 15:56
PROVIDERS: PCP Family Medicine; Visit Provider Obstetrics & Gynecology Gynecology
DX: Z12.31 Encounter for screening mammogram for malignant neoplasm of breast (principal)
CPT/HCPCS: 77063; 77067

== ENCOUNTER 2024-05-18 15:47 | Outpatient (CLI) | payer OTHER, SELFPAY ==
--- NOTE | ~2024-05-18 | US_ITS ---
EXAMINATION: US thyroid DATE: 05/18/2024 16:02 INDICATION: Thyroid nodule follow-up TECHNIQUE: Multiple ultrasound images of the thyroid were obtained. COMPARISON: 04/09/2023 FINDINGS: The right thyroid lobe measures 5.3 x 1.8 x 1.6 cm. Within the lower pole of the right lobe of the thyroid gland is a 7.7 x 7.7 x 7.4 mm nodule: Composition - spongiform Echogenicity - hypoechoic (2) Shape - wider than tall Margin - smooth Echogenic foci - macrocalcifications (1) = TR3 Mildly suspicious Greater than or equal to 1.5 cm: Follow-up Greater than or equal to 2.5 cm: FNA Within the mid pole of the right lobe of the thyroid gland is a 7.2 x 5.3 x 5 mm nodule: Composition - spongiform Echogenicity -hyperechoic or isoechoic (1) Shape - wider than tall Margin - smooth Echogenic foci -none = TR 1 Benign, no FNA, no follow-up The left thyroid lobe measures 1.1 x 2.4 x 1.9 cm. Two nodules are identified in left lobe of the thyroid gland, previously biopsied on 05/19/2023 yieldi ng benign results. No additional nodules are identified in the left lobe of the thyroid gland. No nodules identified identified within the isthmus The isthmus measures 4.3 mm in anterior to posterior dimension. There is an otherwise normal echotexture and echogenicity throughout the remainder of the thyroid gla nd. No additional discrete nodules identified. Normal vascular flow is present. IMPRESSION: TR 3 nodule within the right lobe of the thyroid gland, not meeting size criteria for biopsy. Two nodules in the left lobe of the thyroid gland, previously biopsied, yielding benign results. Reviewed, dictated and finalized at location A. LY CAREGIVER IMPRESSION: TR 3 nodule within the right lobe of the thyroid gland, not meeting size criter ia for biopsy. Two nodules in the left lobe of the thyroid gland, previously biopsied, yieldin g benign results.
== END 2024-05-18 15:48 | disposition home or self-care (01) ==
LOC: MICIMG 15:47
PROVIDERS: PCP Family Medicine; Visit Provider Nurse Practitioner Family
DX: E04.2 Nontoxic multinodular goiter (principal)
CPT/HCPCS: 76536

== ENCOUNTER 2024-09-11 00:42 | Day surgery (SDC) | payer OTHER, SELFPAY ==
[2024-08-29 13:56] VITALS: BMI 28.3
--- OUTSIDE RECORDS SUMMARY | 2024-09-11 00:46 | XMS_ITS | Patient Health Record ---
Author Organization [facility] Address [address] [place], [place] [id number] Care Team Providers Care System Auditor Name Role Phone STEF Mendes Unavailable Scooter Case Unavailable Unavailable Allergies No Known Allergies Reason For Referral No Information Plan Of Treatment No Information Insurance Providers Payer Name Payer Address Payer Phone Subscriber Number Group Number Insured Name Patient Relationship to Insured Coverage Start Date Coverage End Date [facility] [id number] [place] [address] [id number] JUNIOR ALVARADO Self - patient is the insured Medical (General) History Medical History History ICD Code Arthritis fibromyalgia Back Trouble restless leg syndrome
--- OUTSIDE RECORDS SUMMARY | 2024-09-11 00:46 | XMS_ITS | Encounter Summary ---
Author Organization [facility] Address [address] [place] [address] Care Team Providers Care E Commerce Merchant Name Role Phone Scooter Case MD Primary Care Provider [phone] Encounter Details Date Type Department Care Team (Late st Contact Info) Description 04/25/2024 Results Follow-Up [facility] [place] [address] [place] [address] Ivania Aguilar ANP [id number] [facility] [address] [place] [address] VITAMIN D 25 HYDROXY, INSULIN LEVEL, HEMOGLOBIN A1C Social History Tobacco Use Types Packs/Day Years Used Date Smoking Tobacco: Former Cigarettes Q uit: 1993 Smokeless Tobacco: Never Alcohol Use Standard Drinks/Week Comments Yes 0 (1 standard drink = 0.6 oz pur e alcohol) rare a couple of times a year Comments No Sex and Gender Information Value Date Recorded Sex Assigned at Not on file Legal Sex Female 2:57 PM CDT Gender Identity Not on file Sexual Orientation Not on file documented as of this encounter Miscellaneous Notes * Result Encounter Note - Ivania Aguilar ANP - 04/25/2024 2:39 PM SPLICING TECHNICIAN Contact patient regarding result. AIC is normal. Vitamin D level good. Insulin level is high. This can fluctuate throughout the day. She can discuss results with PCP. CING TECHNICIAN documented in this encounter Plan of Treatment Not on file documented as of this encounter Visit Diagnoses Not on filedocumented in this encounter Care Teams E Commerce Merchant Relationship Specialty Start Date End Date Scooter Case MD [address] [place] [address] PCP - General Family Practice 08/04/22 documented as of this encounter
--- OUTSIDE RECORDS SUMMARY | 2024-09-11 00:46 | XMS_ITS | Clinical Summary ---
Author Organization [facility] Address [address] [place] [address] Care Team Providers Care Rejogger Name Role Phone Unavailable Primary Care Provider Unavailabl e Source Comments [facility],non-owned Affiliates and Associated Physician Practices is amultiple site organization consisting of ambulatory clinics and hospital sitesin [place], [place], [place] and [place]. This disclosure is being madepursuant to the Care Everywhere program and may not contain all information available regarding this patient. Last updated 17.[facility] Social History Tobacco Use Types Packs/Day Years Used Date Smoking Tobacco: Never Assessed Comments Unknown Sex and Gender Information Value Date Recorded Sex Assigned at Not on file Legal Sex Female 6:25 PM DIABETES TERRITORY MANAGER Gender Identity Not on file Sexual Orientation Not on file Plan of Treatment Health Maintenance Due Date Last Done Comments COLOGUARD (AGES 45-75) - COL ON CA SCREENING 1968 COLON MONITORING 1968 COLONOSCOPY - COLON CA SCREENING 1968 CT COLONOGRAPHY - COLON CA SCREENING 1970 Colorectal Cancer Screening 1970 FIT - COLON CA SCREENING 1968 FLEX SIG - COLON CA SCREENING 1970 LIPID TESTING 1970 MAMMOGRAM 1970 HIV SCREENING 07/31/1983 HEPATITIS C SCREENING 07/26/1986 DTAP/TDAP/TD VACCINES (1 - Tdap) 07/31/1987 HEPATITIS B VACCINE (1 of 3 - 19+ 3-dose series) 07/31/1987 PNEUMOCOCCAL VACCINE 50+ (1 of 1 - PCV) 2018 ZOSTER VACCINE (1 of 2) 2018 COVID-19 VACCINE (1 - 2023-2 5 season) 2023 DEPRESSION SCREENING 04/05/2024 INFLUENZA VACCINE (Season Ended) 2024 HIB VACCINE Aged Out No longer eligi ble based on patient's age to complete this topic HPV VACCINE Aged Out No longer eligi ble based on patient's age to complete this topic MENINGOCOCCAL (Group B) VACC INE SHARED DECISION-MAKING Aged Out No longer eligibl e based on patient's age to complete this topic MENINGOCOCCAL GROUPS A/C/Y/W VACCINE Aged Out No longer eligible b ased on patient's age to complete this topic Insurance [facility]
--- OUTSIDE RECORDS SUMMARY | 2024-09-11 00:46 | XMS_ITS | Encounter Summary ---
Author Organization [facility] Address [address] [place] [address] Care Team Providers Care Blankbook Forwarder Name Role Phone Unavailable Primary Care Provider Unavailabl e Encounter Details Date Type Department Care Team (Late st Contact Info) Description 01/16/2020 Lab Requisition [facility] [address] [place] [id number] Cecilio Jackson MD [address] [place] [address] Social History Tobacco Use Types Packs/Day Years Used Date Smoking Tobacco: Never Assessed Comments Unknown Sex and Gender Information Value Date Recorded Sex Assigned at Not on file Legal Sex Female 6:[address]ER Gender Identity Not on file Sexual Orientation Not on file documented as of this encounter Plan of Treatment Not on file documented as of this encounter Procedures Procedure Name Priority Date/Time Associated Diagnosis Comments DERMATOPATHOLOGY Routine 01/15/2020 12:0 0 AM CDT documented in this encounter Results * DERMATOPATHOLOGY (01/15/2020 12:00 AM CDT) Case Report Dermatopathology Report Case: [id number] Authorizing Provider: Cecilio Jackson MD Collected: 01/15/2020 12:00 AM Ordering Location: [facility] Received: 01/16/2020 02:52 PM Pathologist: Sil Horvath MD Specimen: Skin, right post auricular 0 12:50 PM CDT DERMATOPATHOLOGY LABORATORY Final Diagnosis Specimen A. 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 Path # [id number]. 0 12:50 PM CDT DERMATOPATHOLOGY LABORATORY Gross Description Specimen A: Received is one formalin filled container labeled with the patient's name and designated right post auricular. The specimen consists of a shave biopsy measuring 1o5y3on. Jar 0. 0 12:50 PM CDT DERMATOPATHOLOGY LABORATORY Microscopic Description Specimen A. SKIN, right post auricular: Sections show nests, cords, and strands of cytologically bland melanocytes that mature with descent into the dermis. There are areas in which the melanocytes have a neuroid appearance. 0 12:50 PM CDT DERMATOPATHOLOGY LABORATORY Disclaimer An external and internal positive and negative controls are appropriate for the histochemical, immunohistochemical and immunofluorescence stain(s) in this case (if any), except where stated explicitly. The performance characteristics of the stain(s) cited in this report were developed and its performance characteristic determined by the Dermatopathology Laboratory at [facility], directed by Dr. Gaurav Martell. These tests need not be, and therefore are not, approved by the [place] Food and Drug Administration. The tests are used for clinical purposes. Billing Codes Specimen Charges Stain Charges 46903 1 0 12:50 PM CDT DERMATOPATHOLOGY LABORATORY Embedded Images 0 12:50 PM CDT DERMATOPATHOLOGY LABORATORY Pathology/Cytolog y TISSUE SPECIMEN FROM SKIN / Unknown 01/15/2020 01/16/2020 2:52 PM CDT us Cecilio Jackson MD LAB - PATHOLOGY/CYTOLOGY ORDER GIDEON Final Result DERMATOPATHOLOGY LABORATORY [facility] - Department of Dermatology [address], [address] Floor [address] [phone] documented in this encounter Visit Diagnoses Not on filedocumented in this encounter
--- OUTSIDE RECORDS SUMMARY | 2024-09-11 00:46 | XMS_ITS | Clinical Summary ---
Author Organization [facility] [employer] [facility] [employer] [place] Address [address] [address] Care Team Providers Care Beater Engineer Name Role Phone Scooter Case MD Primary Care Provider [phone] Allergies Active Allergy Reactions Criticality Noted Date Comments Oxycodone Itching Low 03/24/2017 Medications SUMAtriptan (IMITREX) 100 mg tablet TK 1 T PO DIRECTED FOR NEGRON 2 7 Active valACYclovir (VALTREX) 1 gram tablet TK 2 TS PO BID FOR 1 DAY PRF FEVER BLISTERS 0 7 Active DULoxetine (CYMBALTA) 20 mg Capsule, Delayed Release(E.C.) Take 20 mg by mouth daily. 3 Active estradioL (ESTRACE) 1 mg tablet 3 Active Nurtec ODT 75 mg Tablet, Rapid Dissolve Take 75 mg by mouth 1 time daily as needed. 4 Active meloxicam (MOBIC) 15 mg tablet Take 15 mg by mouth 1 time daily as needed. 4 Active tiZANidine (ZANAFLEX) 2 mg Tablet Take 2 mg by mouth 3 times daily as needed for Spasm. for muscle spasms 4 Active progesterone 50 mg capsule Take by mouth. 5 Active rosuvastatin (Crestor) 10 mg tabletIndications:H yperlipidemia, unspecified hyperlipidemia type Take 1 Tablet (10 mg) by mouth daily. 90 Tablet 5 Active Active Problems Problem Noted Date Diagnosed Date OLIVE on CPAP 04/20/2024 Mixed hyperlipidemia 01/18/2024 Lumbar facet arthropathy 12/22/2021 Overview (08/19/2022): Added automatically from request for surgery [id number] Arthralgia 12/09/2018 Other dysphagia 12/09/2018 Fibromyalgia 12/09/2018 Encounters Date Type Department Care Team Description 08/24/2024 External Device Data [facility] ABSTRACTION Provider, Abstract 08/22/2024 External Device Data [facility] ABSTRACTION Provider, Abstract 08/08/2024 External Device Data [facility] ABSTRACTION Provider, Abstract 07/12/2024 10:20 AM CDT Procedure visit [facility] [place] [address] [place] [phone] Encounter for issue of repeat prescription (Primary Dx) 07/03/2024 Refill [facility] [place] [address] [place] [phone] Ivania Aguilar, JOSE Hyperlipidemia, unspecified hyperlipidemia type 06/21/2024 External Device Data [facility] ABSTRACTION Provider, Abstract 06/16/2024 Results Follow-Up [facility] [place] [address] [place] [phone] Jasmina Ace MD TSH, COMPREHENSIVE METABOLIC PANEL, LIPID PANEL, CBC WITH DIFFERENTIAL 06/14/2024 8:20 AM CDT Office Visit [facility] [place] [address] [place] [address] Screening for condition (Primary Dx) 06/13/2024 External Device Data [facility] ABSTRACTION Provider, Abstract 06/13/2024 External Device Data [facility] ABSTRACTION Provider, Abstract from Last 3 Months Immunizations Immunization Administration Dates Next Due (ADACEL/BOOSTRIX)(10 YR UP) TDAP VACCINE, 0.5ML, IM 01/18/2024 (SHINGRIX)(50 YRS UP) ZOSTER VACCINE RECOMBINANT, 0.5 ML, IM 09/30/2021,2021 INFLUENZA VACCINE QUADRIVALE NT 3 YR UP PF IM 01/14/2022,01/08/2017 INFLUENZA VACCINE QUADRIVALENT 6 MOS UP IM 01/16,01/05/2018 INFLUENZA VACCINE QUADRIVALE NT 6 MOS UP PF IM 01/28/2023,03/19/2021,12/20/2019 INFLUENZA VACCINE TRIVALENT SPLIT VIRUS, (6 MOS UP), 0.5ML (PF), IM 01/13/2024 Family History Medical History Relation Name Comments No Known Problems Brother No Known Problems Daughter No Known Problems Father Diabetes Maternal Grandfather Heart Disease Maternal Grandmother Diabetes Mother Unknown Paternal Grandfather Lung Cancer Paternal Grandmother Relation Name Status Comments Brother Alive Daughter Alive Father Alive Maternal Grandfather Maternal Grandmother Mother Alive Paternal Grandfather Paternal Grandmother Social History Tobacco Use Types Packs/Day Years Used Date Smoking Tobacco: Former Cigarettes Q uit: 1993 Smokeless Tobacco: Never Tobacco Cessation:Counseling Given: Not Answered Alcohol Use Standard Drinks/Week Comments Yes 0 (1 standard drink = 0.6 oz pur e alcohol) rare a couple of times a year Comments No Sex and Gender Information Value Date Recorded Sex Assigned at Not on file Legal Sex Female 2:57 PM CDT Gender Identity Not on file Sexual Orientation Not on file Last Filed Vital Signs Vital Sign Reading Time Taken Comments Blood Pressure 110/78 06/14/2024 8:12 AM CDT Pulse 76 04/20/2024 9:39 AM [employer] DRIVER Temperature 36.7 C (98 F) 04/20/2024 9:39 AM [employer] DRIVER Respiratory Rate 18 04/20/2024 9:39 AM [employer] DRIVER Oxygen Saturation 97% 04/20/2024 9:39 AM [employer] DRIVER Inhaled Oxygen Concentration - - Weight 79.4 kg (175 lb) 06/14/2024 8:12 AM CDT Height 162.6 cm (5' 4) 06/14/2024 8:12 AM CDT Body Mass Index 30.04 06/14/2024 8:12 AM CDT Plan of Treatment Health Maintenance Due Date Last Done Comments HEPATITIS B VACCINES (1 of 3 - 19+ 3-dose series) 07/31/1987 HPV/Cotest (21-29) 1989 HPV/Cotest (30-65) 1998 FIT-DNA Q 3 years 2013 FIT/FOBT Q 1 year 2013 Flex Sig/CT Colonography Q 5 years 2013 BREAST CANCER SCREENING 05/06/2021 05/06/19 21 (Previously completed), 02/03/2018 (Previously completed), 12/04/2016 (Previously completed) CERVICAL CANCER SCREENING 04/10/2023 PAP SMEAR 04/10/2023 04/10/2020 (Prev iously completed), 11/03/2016 (Previously completed) Pre-Diabetes and Diabetes Screening 04/20/2027 04/20/2024, 03/19/2021 COLORECTAL SCREENING 08/03/2029 08/04/2019 Colorectal Cancer Screening 08/03/2029 DTAP/TDAP/TD VACCINES (2 - T d or Tdap) 01/17/2034 01/18/2024 ZOSTER VACCINE Completed 09/30/2021, 2021 INFLUENZA VACCINE Completed 01/13/2024, , 01/14/2022, Additional history exists Procedures Procedure Name Priority Date/Time Associated Diagnosis Comments HEMOGLOBIN A1C Routine 04/20/2024 10:05 AM [employer] DRIVER Obesity (BMI 30.0-34.9) from Last 3 Months or Most Recently Relevant to Health Maintenance Results * HEMOGLOBIN A1C (04/20/2024 10:05 AM [employer] BUS DRIVER) HEMOGLOBIN A1C 5.4 <5.7 % of total Hgb [facility] Comment: For the purpose of screening for the presence of diabetes: <5.7% Consistent with the absence of diabetes 5.7-6.4% Consistent with increased risk for diabetes (prediabetes) > or =6.5% Consistent with diabetes This assay result is consistent with a decreased risk of diabetes. Currently, no consensus exists regarding use of hemoglobin A1c for diagnosis of diabetes in children. According to [place] Diabetes Association (ADA) guidelines, hemoglobin A1c <7.0% represents optimal control in non- diabetic patients. Different metrics may apply to specific patient populations. Standards of Medical Care in Diabetes(ADA). ESTIMATED AVERAGE GLUCOSE (MG/DL) 108 mg/dL [facility] ESTIMATED AVERAGE GLUCOSE (MMOL/L) 6.0 mmol/L [facility] Comment: Test Performed at: [facility] [id number] [phone] Shanique Wong MD Blood 04/20/2024 10:0 5 AM [employer] DRIVER 04/21/2024 5:22 AM [employer] DRIVER us Ivania Noni Jeff ANP CHEMISTRY ORDERABLES Final R esult [facility] [phone] [facility] [id number] [phone] from Last 3 Months or Most Recently Relevant to Health Maintenance Insurance * Guarantor: [employer] ([employer]) Account Type Relation to Patient Date of Phone Billing Address Corporate Employer ATTN: DIANA DAY [address] [phone] [employer] OPEN ACCESS * Guarantor: [employer] Account Type Relation to Patient Date of Phone Billing Address Corporate Employer ATTN: DIANA [employer] [address] [address] Care Teams Beater Engineer Relationship Specialty Start Date End Date Scooter Case MD [address] [place] [address] PCP - General Family Practice 08/04/22
[2024-09-11 09:46] VITALS: BP 112/72; PULSE 84; RESP 20; TEMP 36.3; O2SAT 99
[2024-09-11] MEDS: LACTATED RINGERS 1,000 ML 150 ML IV CONT (09:50)
--- NOTE | 2024-09-11 09:56 | P.PNAN_ITS ---
Anes - Initial Pre Proc Eval Procedure: Operation Date: 09/11/24 11:00 Proposed Procedures p Screening Colonoscopy - Lee Diaz MD Date/Time: 09/11/24 09:56 Surgeon: Lee Diaz MD Pre Op Diagnosis: screening colon Patient Data Age: 54 Gender: F Height: 1.63 m Weight: 72 kg Last Vital Signs Temp 36.3 C L 09/11/24 09:46 Pulse 84 09/11/24 09:46 Resp 20 09/11/24 09:46 BP 112/72 09/11/24 09:46 Pulse Ox 99 09/11/24 09:46 O2 Del Method Room Air 09/11/24 09:46 Allergies Allergy/AdvReac Type Severity Reaction Status Date / Time oxycodone (From OxyContin) Allergy Mild Itching Verified 09/11/24 09:42 Home Medications ?Medication ?Instructions ?Recorded ?Confirmed ?Type estradiol 0.5 mg tablet 0.5 mg PO DAILY 03/28/20 09/11/24 History rosuvastatin 10 mg tablet 10 mg PO DAILY 05/05/21 09/11/24 History duloxetine 20 mg capsule,delayed 20 mg PO DAILY #30 caps 05/02/24 09/11/24 Rx release progesterone micronized 100 mg 100 mg PO DAILY 05/02/24 09/11/24 History capsule metformin 500 mg tablet,extended 500 mg PO DAILY #90 tabs 06/06/24 08/29/24 Rx release 24 hr (Glucophage XR) rimegepant 75 mg disintegrating 75 mg PO .every other day PRN 08/21/24 08/29/24 Rx tablet (Nurtec ODT) migraine headache #14 tabs meloxicam 15 mg tablet 15 mg PO DAILY PRN pain 08/29/24 09/11/24 History omeprazole 20 mg capsule,delayed 20 mg PO DAILY PRN heartburn 08/29/24 08/29/24 History release valacyclovir 1 gram tablet 2,000 mg PO Q12H PRN [place] 08/29/24 08/29/24 History (Valtrex) tirzepatide (weight loss) 5 mg/0.5 5 mg (0.5 mL) subcut WEEKLY #2 mL 09/03/24 09/11/24 Rx mL subcutaneous pen injector (Zepbound) Patient hx anesthesia problems: none Family hx anesthesia problems: none Results Review: All pre-operative results and documents have been reviewed as part of the pre- operative evaluation. FORMERLY [facility], [facility] Past Medical History Medical History Counseling on health promotion and disease prevention Encounter for medication management Lumbosacral radiculopathy due to degenerative joint disease of spine Degenerative disk disease BMI 32.0-32.9,adult BMI 31.0-31.9,adult Trochanteric bursitis of left hip History of bruising easily History of stress test (~2001) Urinary symptom or sign BMI 29.0-29.9,adult Abnormal MRI, knee UTI (urinary tract infection) Thyroid nodule Cervical radiculopathy Thoracic spondylosis BMI 28.0-28.9,adult Lower back pain BMI 27.0-27.9,adult Arthralgia Fibromyalgia Other hyperlipidemia Right lateral epicondylitis Stress incontinence in female Right sided sciatica Onychia of toe of left foot Migraine Anxiety GERD (gastroesophageal reflux disease) RLS (restless legs syndrome) Migraine Hyperlipidemia Surgical History Surgical History History of bladder surgery (~2018) Sling H/O Spinal surgery (~2001) Fusion L4-5, L5-S1 History of cholecystectomy (~1993) Family History Family History Grandparent Cerebrovascular accident Family history of heart disease in male family member before age 55 Father Hypertension Mother No problems noted. Sibling No problems noted. Other Diabetes mellitus Social History Social History Smoking status: Former smoker Tobacco type: cigarettes Second hand tobacco smoke exposure: Yes Smoking end date: 04/05/93 Alcohol intake: current Substance use: never Substance use type: does not use Do You Feel Safe in your Home?: Yes Lack of Transportation: No Lack of Food: Never True Current Housing: I Have Housing Concerned About Future Housing: No Difficulty Paying Gas/Electric Bills: No Difficulty Paying for Meds: No Currently Unemployed: No Education: High School Diploma/GED Difficulty w/ Childcare or Family Care: No Living arrangements: with family Occupation/Education: occupation 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 Informed Consent: The patient's anesthetic plan and its attendant risks and benefits were discussed with the patient/family/POA. Questions were solicited and answers provided to the satisfaction of the patient/family/POA.
--- NOTE | 2024-09-11 10:06 | P.HP_ITS ---
H&P: HPI History of Present Illness Date/Time: 09/11/24 10:06 Chief Complaint: History of colon polyps Narrative: The patient has a history of colonic polyps, the last colonoscopy was 5 years ago. Review of Systems Review of Systems: All systems reviewed & are unremarkable except as noted in HPI and below PMFSH Past Medical History Medical History Counseling on health promotion and disease prevention Encounter for medication management Lumbosacral radiculopathy due to degenerative joint disease of spine Degenerative disk disease BMI 32.0-32.9,adult BMI 31.0-31.9,adult Trochanteric bursitis of left hip History of bruising easily History of stress test (~2001) Urinary symptom or sign BMI 29.0-29.9,adult Abnormal MRI, knee UTI (urinary tract infection) Thyroid nodule Cervical radiculopathy Thoracic spondylosis BMI 28.0-28.9,adult Lower back pain BMI 27.0-27.9,adult Arthralgia Fibromyalgia Other hyperlipidemia Right lateral epicondylitis Stress incontinence in female Right sided sciatica Onychia of toe of left foot Migraine Anxiety GERD (gastroesophageal reflux disease) RLS (restless legs syndrome) Migraine Hyperlipidemia Surgical History Surgical History History of bladder surgery (~2018) Sling H/O Spinal surgery (~2001) Fusion L4-5, L5-S1 History of cholecystectomy (~1993) Family History Family History Grandparent Cerebrovascular accident Family history of heart disease in male family member before age 55 Father Hypertension Mother No problems noted. Sibling No problems noted. Other Diabetes mellitus Social History Social History Smoking status: Former smoker Tobacco type: cigarettes Second hand tobacco smoke exposure: Yes Smoking end date: 04/05/93 Alcohol intake: current Substance use: never Substance use type: does not use Do You Feel Safe in your Home?: Yes Lack of Transportation: No Lack of Food: Never True Current Housing: I Have Housing Concerned About Future Housing: No Difficulty Paying Gas/Electric Bills: No Difficulty Paying for Meds: No Currently Unemployed: No Education: High School Diploma/GED Difficulty w/ Childcare or Family Care: No Living arrangements: with family Occupation/Education: occupation 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 Gender identity (if verbalized by the patient): Female Meds Home Medications and Allergies Home Medications ?Medication ?Instructions ?Recorded ?Confirmed ?Type estradiol 0.5 mg tablet 0.5 mg PO DAILY 03/28/20 09/11/24 History rosuvastatin 10 mg tablet 10 mg PO DAILY 05/05/21 09/11/24 History duloxetine 20 mg capsule,delayed 20 mg PO DAILY #30 caps 05/02/24 09/11/24 Rx release progesterone micronized 100 mg 100 mg PO DAILY 05/02/24 09/11/24 History capsule metformin 500 mg tablet,extended 500 mg PO DAILY #90 tabs 06/06/24 08/29/24 Rx release 24 hr (Glucophage XR) rimegepant 75 mg disintegrating 75 mg PO .every other day PRN 08/21/24 08/29/24 Rx tablet (Nurtec ODT) migraine headache #14 tabs meloxicam 15 mg tablet 15 mg PO DAILY PRN pain 08/29/24 09/11/24 History omeprazole 20 mg capsule,delayed 20 mg PO DAILY PRN heartburn 08/29/24 08/29/24 History release valacyclovir 1 gram tablet 2,000 mg PO Q12H PRN [place] 08/29/24 08/29/24 History (Valtrex) tirzepatide (weight loss) 5 mg/0.5 5 mg (0.5 mL) subcut WEEKLY #2 mL 09/03/24 09/11/24 Rx mL subcutaneous pen injector (Zepbound) Allergies Allergy/AdvReac Type Severity Reaction Status Date / Time oxycodone (From OxyContin) Allergy Mild Itching Verified 09/11/24 09:42 Vital Signs Vital Signs - 24 hr 09/11/24 09:46 Temperature 97.3 F L Pulse Rate 84 Respiratory Rate 20 Blood Pressure 112/72 Pulse Oximetry 99 Oxygen Delivery Room Air Exam Const: General: cooperative and healthy appearing Resp: Effort & Inspection: normal respiratory effort and able to speak in complete sentences Auscultation: clear to auscultation bilaterally Cardio: Rate: regular rate Rhythm: regular rhythm GI: Inspection: normal to inspection GI Palp: No No hepatosplenomegaly present Auscultation: normal bowel sounds Rectal Exam: deferred Skin: General skin exam: normal color Psych: Appearance: grossly normal Mental Status: mental status grossly normal Assessment and Plan Assessment and plan (1) History of colonic polyps: Code(s): Z86.0100 - Personal history of colon polyps, unspecified Status: Acute Assessment and Plan: The patient is deemed a good candidate for the procedure. Consent signed. Jorge samuels.
--- NOTE | 2024-09-11 10:21 | S_PTH ---
PATIENT: Darya Yusuf LOC: MARGARET Alvarez#:[id number] AGE/SX: 54/F ROOM: RE09/11/[address]: Lee Diaz MD : 1970 BED: DIS: 09/11/2024 SPEC #: [id number] RECD: 09/11/24 13:11 STATUS: BEN REQ #: [id number] MALORIE: 09/11/24 10:[address]: Lee Diaz DEPT: [facility] Surgical RECD BY: Serenity Starkey ENTERED: 09/11/24 13:12 SP TYPE: Surgical OTHR DR: Scooter Case MD Tissues: A - Colon Polypectomy Procedures: Hematoxylin and Eosin Stain Gross and Microscopic Level 4
[2024-09-11 10:23] VITALS: BP 125/73; PULSE 72; RESP 18; O2SAT 97
[2024-09-11 10:33] VITALS: BP 103/63; PULSE 67; RESP 15; O2SAT 100
[2024-09-11 10:43] VITALS: BP 106/38; PULSE 66; RESP 16; O2SAT 99
== END 2024-09-11 10:55 | disposition home or self-care (01) ==
PROVIDERS: PCP Family Medicine; Referring Provider Obstetrics & Gynecology Gynecology; Visit Provider Internal Medicine Gastroenterology
PROC: 0DJD8ZZ Inspection of Lower Intestinal Tract, Via Natural or Artificial Opening Endoscopic (ICD-10-PCS; CPT 45378; principal; 2024-09-11 11:00)
DX: Z12.11 Encounter for screening for malignant neoplasm of colon (principal); D12.5 Benign neoplasm of sigmoid colon; K57.30 Diverticulosis of large intestine without perforation or abscess without bleeding; Z87.891 Personal history of nicotine dependence
CPT/HCPCS: 45385; 88305; J2003; J2704; J7120

== ENCOUNTER 2024-10-10 14:57 | Outpatient (CLI) | payer OTHER, SELFPAY ==
--- NOTE | ~2024-10-10 | MM_ITS ---
EXAMINATION: MM screening [facility] BI w delta HISTORY: Screening TECHNIQUE: Craniocaudal and mediolateral oblique 3-D tomosynthesis images were obtained and synthetic 2-D images were generated. CAD analysis was submitted and interpreted. COMPARISON: Comparison to multiple prior studies sequentially, with oldest reviewed study dated 02/04. BREAST PARENCHYMAL COMPOSITION: Not dense: There are scattered areas of fibroglandular density. FINDINGS: There are multiple bilateral low-density masses in the breasts which are either stable or d ecreased in size compared with prior studies. There is no evidence of developing suspicious mass, roma cification, or architectural distortion to suggest malignancy in either breast. There has been no bryce picious interval change. IMPRESSION: 1. No mammographic evidence of malignancy. 2. Recommend routine screening mammography in one year. BI-RADS Category 2: Benign finding(s). Reviewed, dictated and finalized at location A.
== END 2024-10-10 14:58 | disposition home or self-care (01) ==
LOC: MICIMG 14:59
PROVIDERS: PCP Family Medicine; Visit Provider Obstetrics & Gynecology Gynecology
DX: Z12.31 Encounter for screening mammogram for malignant neoplasm of breast (principal)
CPT/HCPCS: 77063; 77067